=== PATIENT | male | born 1995 | race Caucasian/White ===

== ENCOUNTER 2018-10-05 17:38 | Emergency (ER) | payer OTHER, MEDICAID ==
[~2018-10-05] VITALS: Ht 147.3 cm; Wt 65.8 kg
[2018-10-05 17:55] VITALS: BP 124/75
[2018-10-05] MEDS ORDERED: NACL 0.9% 1,000 ML IV SCH (18:03)
[2018-10-05] MEDS ORDERED: cefTRIAXone 1,000 MG in DEXT 5% MINI-BAG PLUS 50 ML IV ONE (18:05)
[2018-10-05] MEDS ORDERED: cefTRIAXone 1,000 MG VIAL ONE (18:17)
--- NOTE | 2018-10-05 18:18 | NUR ---
X RAY AT BEDSIDE
--- NOTE | 2018-10-05 18:25 | NUR ---
23 YO M BIB MOTHER W/ C/O FEVERS X 2 DAYS. PT WAS ADMITTED FOR PNEUMONIA 2 WEEKS AGO AND MOTHER STATES THAT HE IS PRESENTING W/ THE SAME SYMPTOMS. N/V AND CHOKES ON VOMIT PER MOTHER. RR EVEN AND UNLABORED, LUNGS BL CLEAR THROUGHOUT HX GTUBE, CEREBRAL PALSY, SEIZURES RX PHENOBARBITAL, KEPPRA
[2018-10-05 18:27] LABS: BASOPHILS % (AUTO) 0.1 % (0.0-2.0); EOSINOPHILS # (AUTO) 0.3 K/uL (0-0.4)
[2018-10-05 18:37] LABS: EOSINOPHILS % (AUTO) 2.5 % (0.0-4.0); HEMATOCRIT 52.3 % (36-52); HEMOGLOBIN 17.2 g/dL (12.0-18.0); LYMPHOCYTES # (AUTO) 0.9 K/uL (2.0-11.5); LYMPHOCYTES % (AUTO) 7.2 % (20.5-51.1); MEAN CORPUSCULAR HEMOGLOBIN 31 pg (27-31); MEAN CORPUSCULAR HGB CONC 33 g/dL (33-37); MEAN CORPUSCULAR VOLUME 93.1 fL (80-94); MONOCYTES # (AUTO) 0.7 K/uL (0.8-1.0); MONOCYTES % (AUTO) 5.3 % (1.7-9.3); NEUTROPHILS # (AUTO) 10.4 K/uL (1.8-7.7); PLATELET COUNT (AUTO) 279 K/uL (140-450); RED BLOOD CELL COUNT(AUTO) 5.62 MIL/uL (4.20-6.10); RED CELL DISTRIBUTION WIDTH 13.5 % (11.6-13.7); WHITE BLOOD COUNT (AUTO) 12.2 K/uL (4.8-10.8)
[2018-10-05 18:43] LABS: ANION GAP 11.4 (8-16); CARBON DIOXIDE 31.5 mmol/L (21-32); POTASSIUM 3.9 mmol/L (3.5-5.1)
[2018-10-05 18:44] LABS: CREATININE 0.8 mg/dL (0.7-1.3)
[2018-10-05 18:48] LABS: PROTHROMBIN TIME 10.1 secs (10.8-13.4)
[2018-10-05 18:51] LABS: ALBUMIN 4.7 g/dL (3.4-5.0); TOTAL BILIRUBIN 0.4 mg/dL (0.0-1.0)
[2018-10-05 18:57] LABS: NEUTROPHILS % (AUTO) 84.9 % (42.2-75.2)
--- NOTE | 2018-10-05 19:13 | NUR ---
Pt report given to JAY NICOLE. Transfer of care at this time.
[2018-10-05 19:20] LABS: APPEARANCE,URINE CLEAR (CLEAR); BILIRUBIN,URINE NEGATIVE (NEGATIVE); BLOOD, URINE NEGATIVE (NEGATIVE); COLOR,URINE YELLOW (YELLOW); LEUKOCYTE ESTERASE ,URINE NEGATIVE (NEGATIVE); NITRITE, URINE NEGATIVE (NEGATIVE); UGLUCOSE NEGATIVE (NEGATIVE)
[2018-10-05 19:28] LABS: RBC,URINE 3-10 (FEW) /HPF (0-5); WBC,URINE 0-5 (RARE) /HPF (0-5)
--- NOTE | 2018-10-05 20:48 | NUR ---
Dr. Flores evaluating patient at bedside.
[2018-10-05] MEDS ORDERED: ONDANSETRON 4 MG/2 ML VIAL IVP ONE (20:55)
[2018-10-05 21:35] VITALS: BP 117/76
--- NOTE | 2018-10-05 21:35 | NUR ---
Patient discharged with v/s stable. Written and verbal after care instructions given and explained to parents. Patient alert, oriented. Parents verbalized understanding of instructions. Wheelchair assisted to POV. All questions addressed prior to discharge. ID band removed. Parents advised to follow up with PMD. Rx of Tylenol, Ibuprofen, Levaquin, and Zofran given. Parents educated on indication of medication including possible reaction and side effects. Opportunity to ask questions provided and answered.
== END 2018-10-05 21:35 | disposition home or self-care (01) ==
LOC: MED 17:38
DX: N39.0 Urinary tract infection, site not specified (principal); G80.9 Cerebral palsy, unspecified; Z91.040 Latex allergy status
CPT/HCPCS: 36415; 71045; 80053; 81001; 82550; 82553; 83605; 83874; 83880; 84484; 85025; 85610; 85730; 87040; 87086; 96365; 96375; 99284; J0696; J2405; J7060; Q0092

== ENCOUNTER 2018-11-19 17:22 | Emergency (ER) | payer OTHER, MEDICAID ==
[~2018-11-19] VITALS: Ht 142.2 cm; Wt 65.8 kg
[2018-11-19 17:28] VITALS: BP 118/64
--- NOTE | 2018-11-19 17:35 | NUR ---
23 YO M BROUGHT IN BY FAMILY W/ C/O LEFT EAR PAIN X TODAY. BROTHER STATES PT USUALLY PUTS FOREIGN OBJECTS INTO EAR. NO DRAINAGE NOTED AT THIS TIME NOR EDEMA OR VISIBLE FB. PT NEURO TO BASELINE W/ HX MRCP. PT IN W/C. RR EVEN AND UNLABORED, LUNGS BL CLEAR. ABD SOFT, NON-TENDER. ER MD NOTIFIED OF PT STATUS. PT NEEDS MET, FAMILY AT BEDSIDE. SAFETY PRECAUTIONS IN PLACE. WILL CONTINUE TO MONITOR.
--- NOTE | 2018-11-19 17:48 | NUR ---
Patient being evaluated by physician at bedside.
[2018-11-19 18:01] VITALS: BP 120/65
== END 2018-11-19 18:00 | disposition home or self-care (01) ==
LOC: MED 17:22
DX: H60.92 Unspecified otitis externa, left ear (principal); R56.9 Unspecified convulsions; Z91.040 Latex allergy status
CPT/HCPCS: 99281; 99283

== ENCOUNTER 2019-09-15 17:39 | Emergency (ER) | payer OTHER, MEDICAID ==
[~2019-09-15] VITALS: Ht 147.3 cm; Wt 65.8 kg
--- NOTE | 2019-09-15 17:44 | NUR ---
PT W/C ASSISTED TO BED 1.
[2019-09-15 17:45] VITALS: BP 132/72
--- NOTE | 2019-09-15 17:48 | NUR ---
24 Y/O MALE PRESENTED WITH C/C OF RIGHT ELBOW PAIN PER MOTHER X1 WEEK. PT ALLERGIC TO DUST, LATEX. 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 PT HX OF CEREBRAL PALSY, SZ. PER MOTHER CHILD DOES NOT WALK, MODE OF TRANSPORTATION IS BY USING HANDS. NO OTHER C/C COMPLAINTS NOTED; CHILD IS IN CURRENT BASELINE PER MOTHER. SIDE RAIL X1. MOTHER AT BEDSIDE.
--- NOTE | 2019-09-15 18:00 | NUR ---
SRIDHAR PARR AT BEDSIDE
[2019-09-15 18:14] VITALS: BP 132/72
--- NOTE | 2019-09-15 18:14 | NUR ---
Patient discharged with v/s stable. Written after care instructions given IN [place] and explained IN [employer]/AMERICAN. FAMILY verbalized understanding of instructions. WHEELCHAIRED TO CAR BY FAMILY. ID band removed. FAMILY advised to follow up with PMD. Rx of ACETAMINOPHEN, KEFLEX, AND PREDNISOLONE given. FAMILY educated on indication of medication including possible reaction and side effects. Opportunity to ask questions provided and answered.
== END 2019-09-15 18:14 | disposition home or self-care (01) ==
LOC: MED 17:39
DX: M70.21 Olecranon bursitis, right elbow (principal); L03.113 Cellulitis of right upper limb; Z91.040 Latex allergy status; Y93.89 Activity, other specified
CPT/HCPCS: 99283